=== PATIENT | female | born 1965 | race Two or more races ===

== ENCOUNTER 2018-02-16 13:27 | Emergency (ER) | payer MEDICAID ==
[~2018-02-16] VITALS: Ht 165.1 cm; Wt 77.6 kg
[2018-02-16 13:37] VITALS: BP 173/89; Ht 165.1 cm; Wt 77.6 kg
== END 2018-02-16 15:37 | disposition home or self-care (01) ==
LOC: ED 13:27
DX: T65.891A Toxic effect of other specified substances, accidental (unintentional), initial encounter (principal); H57.12 Ocular pain, left eye; I10 Essential (primary) hypertension; E11.9 Type 2 diabetes mellitus without complications; Y92.89 Other specified places as the place of occurrence of the external cause
CPT/HCPCS: J7030; V2632